=== PATIENT | male | born 1970 | race African-American/Black ===

== ENCOUNTER → 2021-09-12 15:13 | Outpatient (CLI) | payer OTHER, SELFPAY ==
--- NOTE | ~2021-09-12 | XR_ITS ---
XR sacrum coccyx min 2V DATE: 09/12/2021 15:47 INDICATION: Tailbone pain following sitting on sofa arm 2 weeks ago TECHNIQUE: AP, angled AP and lateral views COMPARISON: None FINDINGS: There is moderate degenerative disc disease at multiple levels of the lumbar spine, includi ng severe degenerative disc disease at L3-4. No fracture or bone destruction of the sacrum or coccyx. 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
== END ==
PROVIDERS: PCP Physician Assistant; Visit Provider Physician Assistant
DX: S39.92XA Unspecified injury of lower back, initial encounter (principal); X58.XXXA Exposure to other specified factors, initial encounter; M51.36 Other intervertebral disc degeneration, lumbar region
CPT/HCPCS: 72220

== ENCOUNTER 2021-12-16 08:00 | Outpatient (CLI) | payer OTHER, SELFPAY ==
--- NOTE | ~2021-12-16 | CT_ITS ---
EXAMINATION: CT pelvis wo con DATE: 12/16/2021 08:25 INDICATION: Coccyx pain TECHNIQUE: Computed tomography (CT) of the pelvis was performed without intravenous contrast. The dos e-length product (DLP) was 746.21 mGy-cm. Automated exposure control and iterative reconstruction nita hnique were employed. COMPARISON: None FINDINGS: Bone alignment is normal. There is no displaced fracture. There is questionable subtle dalila ical irregularity involving the distal coccyx which could reflect a nondisplaced fracture. There is m oderate lower lumbar spondylosis. There is a small fat-containing umbilical hernia. Phleboliths are n oted in the pelvis. There are no pathologically enlarged pelvic lymph nodes. IMPRESSION: 1. Questionable subtle cortical irregularity involving the distal coccyx which could reflect a nondis placed fracture. Reviewed, dictated and finalized at location F. IMPRESSION: 1. Questionable subtle cortical irregularity involving the distal coccyx which could reflect a nondisplaced fracture.
== END 2021-12-16 08:01 | disposition home or self-care (01) ==
PROVIDERS: PCP Physician Assistant; Visit Provider Neurological Surgery
DX: M53.3 Sacrococcygeal disorders, not elsewhere classified (principal)
CPT/HCPCS: 72192